=== PATIENT | male | born 1960 | race Two or more races ===

== ENCOUNTER → 2017-08-01 | Day surgery (SDC) | payer BC, OTHER ==
[~2017-08-01] MED LIST: ACETAMINOPHEN 500 MG TAB PO ONE; ALTEPLASE 2 MG VIAL IVP PRN; FLUMAZENIL 0.5 MG/5 ML MDV IVP ONE; FLUMAZENIL 0.5 MG/5 ML MDV IVP PRN; GLUCAGON HCL 1 MG VIAL IVP PRN; HEPARIN 10,000 UNIT/10 ML MDV (1,000 UNIT/ML) IVP PRN; IOPAMIDOL (ISOVUE-300) 100 ML BTL ONE; MEPERIDINE 25 MG/ML SYR IVP PRN; MIDAZOLAM 2 MG/2 ML VIAL IVP PRN; MIDAZOLAM 2 MG/2 ML VIAL ONE; NALOXONE HCL 0.4 MG/ML INJ IVP PRN; NALOXONE HCL 0.4 MG/ML INJ ONE; NS 1,000 ML IV SCH; ONDANSETRON 4 MG/2 ML VIAL IVP PRN; OXYCODONE/APAP 5/325 TAB PO PRN; PROTAMINE SULFATE 50 MG/5 ML VIAL IVP PRN; fentaNYL 100 MCG/2 ML INJ IVP PRN; fentaNYL 100 MCG/2 ML INJ ONE
--- NOTE | 2017-08-01 13:09 | PDHPUP ---
History & Physical Update H&P update statement: This history and physical update is based on an assessment of the patient which was completed after admission or registration (within 24 hours), but prior to the surgery/procedure. H&P update: H&P reviewed & patient examined, no change in patient's condition since H&P completed
--- NOTE | 2017-08-01 13:10 | PDPROPOC ---
Sedation Plan of Care Sedation Plan of Care: vital signs stable, mental status noted, patient educated of risks, benefits, alternatives, patient can tolerate sedation ASA Classification: ASA 2 Planned drugs: fentanyl, midazolam Mallampati Score: Class 1 Mallampati Reference Image: Patient passed 3-3-2 rule?: Yes
[2017-08-01 14:21] VITALS: BP 112/71
--- NOTE | 2017-08-01 14:23 | POSTOPPROG ---
Post Op Note Date of Operation: 08/01/17 Surgeon: Zacarias Pendleton Human Resources Office Manager: none Anesthesiologist: none Anesthesia: IV Sedation Pre-op Diagnosis: ? cerebral aneurysm Post-op Diagnosis: same Indication: same Procedure: cerebral angiogram Findings: no evidence for MCA aneursym, Acomm infundibulum Inf/Abcess present in the surg proc area at time of surgery?: No EBL: Minimal
== END | disposition home or self-care (01) ==
LOC: FIMAGING 11:20
PROVIDERS: ATTEND Neurological Surgery
DX: R42 Dizziness and giddiness (principal); I77.89 Other specified disorders of arteries and arterioles
CPT/HCPCS: 36224; 36226; 99152; 99153; C1769; J1644; J2250; J2310; J3010; Q9967